=== PATIENT | female | born 1990 | race Caucasian/White ===

== ENCOUNTER 2022-07-21 13:43 | Inpatient (IN) ==
[2022-07-21] MEDS ORDERED: ONDANSETRON INJ 2 MG/ML 2 ML VIAL IV STA ×2 (14:28→18:15)
[2022-07-21] MEDS ORDERED: fentaNYL citrate PF 100 MCG/2 ML VIAL IV STA (14:28)
[2022-07-21] MEDS ORDERED: SODIUM CHLORIDE 0.9% 1000ML 1,000 ML IV STA (14:28)
--- NOTE | 2022-07-21 14:30 | Emergency Department Note ---
Impression & Plan Acute right flank pain, Hydroureteronephrosis, Obstruction of ureter ED Provider Note HISTORY OF PRESENT ILLNESS: Patient is a 31-year-old female presenting with right flank pain. Patient had a shockwave lithotripsy performed yesterday by urology. She reports that she went home last night had some vague right CVA and flank pain and 1 episode of vomiting. However, she states that she had excruciating pain upon waking up this morning in her right flank and has vomited multiple times. She reports that anytime she tries to take anything by mouth she immediately vomits. Denies noticing any fevers. Denies any anterior abdominal pain. Denies any chest pain or shortness of breath. ROS: as above PHYSICAL EXAM: Constitutional: Patient appears in no acute distress. HENT: Head: Normocephalic and atraumatic. Eyes: EOMI, PERRL Mouth/Throat: Mucous membranes moist. Neck: Trachea midline. Neck supple. Cardiovascular: RRR, No murmurs, rubs or gallops. Intact distal pulses. Pulmonary/Chest: No respiratory distress. Breath sounds clear and equal bilaterally. No wheezes or rales. Abdominal: BS +. Abdomen soft, no tenderness, rebound or guarding. Back: No midline spinal tenderness, no paraspinal tenderness. Right CVA tenderness Musculoskeletal: No edema, tenderness or deformity noted. Skin: Warm and dry. No rash, erythema, pallor or cyanosis Psychiatric: Appropriate mood and affect for situation. Neurological: Alert and keenly responsive. CN II-XII grossly intact, moving all extremities equally and fully. MDM: - Vitals signs stable. - History obtained via patient. Patient presents with right flank pain. Patient reports that yesterday she had shockwave lithotripsy. She states that last night she had some vague right CVA pain and 1 episode of vomiting. She reports that since waking up this morning her pain has been excruciating and she has been unable to tolerate anything by mouth. She reports that she has been vomiting nonstop since waking up. Denies any fevers. Denies any anterior abdominal pain. Denies any chest pain or shortness of breath - Chronic conditions affecting care: Recurrent ureteral stones - Differential diagnoses include, but are not limited to: Ureteric calculi; pyelonephrosis; muscle spasm; ruptured ureter - Order placed for continuous cardiac monitoring. At this time, monitor showed rate of 81 bpm with normal sinus rhythm, per my interpretation. - External medical records reviewed. Patient had shockwave lithotripsy performed for a right-sided UPJ stone. - Laboratory workup interpreted by myself showed leukocytosis (WBC 14.52); stable electrolytes; normal creatinine; normal lipase - UA shows ketones and blood, but no bacteria. - CT abdomen/pelvis wo contrast showed proximal right ureter conglomerate from her stone fragments extending for a length of 9 mm causing moderate hydroureteronephrosis with perinephric and periureteral inflammation. - Discussed case with urologist labor relations director, Dr. Cam. He plans to take the patient to the OR for a stent. - Patient was given 1L NS, 50 mcg IV fentanyl and 4 mg IV zofran in ER. On reassessment, patient appears much more comfortable. - Discussed results with patient. Discussed plan for OR - Patient to go to OR with urology for further management. ASSESSMENT AND PLAN: Diagnosis: right flank pain; nausea and vomiting; right hydroureteronephrosis; obstructing right stone Plan: to OR Past Med/Surg History Medical History History of asthma exercise induced since a teenager History of COVID-19 07/31/21, home test and test at [facility], not hosp; fever, body aches, chills>resolved History of kidney stones started when she was 16 years old Hx of migraines Slow to wake up after anesthesia Surgical History Hx of lithotripsy x2 Hx of wisdom tooth extraction Social History Smoking Status: Never smoker Second Hand Exposure: No; Hx Alcohol Use: No Hx Substance Use: No Preferred Language: Somali Communication Ability: Effective Metal Lather Required: No Beliefs That Will Affect Care: None Current Living Situation: Family Feels Safe at Home: Yes Assistive Devices: None Allergies Allergies Allergy/AdvReac Type Severity Reaction Status Date / Time amoxicillin Allergy Unknown GI SYMPTOMS Verified 07/21/22 15:27 nitrofurantoin Allergy Unknown GI SYMPTOMS Verified 07/21/22 15:27 Home Meds Home Medications Medication Instructions Recorded Confirmed Migraine Medication 1 tab PO UD PRN MIGRAINES 07/10/22 07/21/22 albuterol sulfate 90 mcg/actuation 2 puff inhalation Q4 PRN 07/10/22 07/21/22 aerosol inhaler wheezing/dyspnea norgestimate 0.18 mg/0.215 mg/0.25 1 tab PO QPM 07/10/22 07/21/22 mg-ethinyl estradiol 25 mcg tablet (Syh-Gh-Vmapxf) ondansetron 4 mg disintegrating 4 mg PO Q8H PRN NAUSEA W/MIGRAINES 07/10/22 07/21/22 tablet Previous Rx's Medication Instructions Recorded oxycodone 5 mg tablet 5 mg PO Q6H PRN pain #7 tabs 07/21/22 Results & Data (ED) Vital Signs Vital Signs - 24 hr 07/21/22 14:03 Temperature 36.4 C L Temperature Source Temporal Artery Scan Pulse Rate 80 Respiratory Rate 18 Blood Pressure 117/73 Blood Pressure Mean 87 Pulse Oximetry 99 Sepsis Recent Fever Within 48 Hours No Sepsis New/Unexplained Change in Mental Status N/A Sepsis Action Taken by Nursing No Action Required Laboratory Data 07/21/22 14:46 07/21/22 14:46 Lab Results 07/21/22 07/21/22 07/21/22 Range/Units 14:46 14:46 14:46 WBC 14.52 H (4.8-10.8) K/ul RBC 4.86 (4.20-5.40) M/uL Hgb 14.6 (12.0-16.0) g/dl Hct 43.3 (37.0-47.0) % MCV 89.1 (80.0-100.0) fL MCH 30.0 (25.0-34.0) pg MCHC 33.7 (32.0-36.0) g/dL RDW Std Deviation 40.4 (36.4-46.3) fL RDW Coeff of [place]imbola 12.3 (11.5-14.5) % Plt Count 243 (130-400) K/uL MPV 10.1 (9.4-12.4) fL Immature Gran % (Auto) 0.3 % Neut % (Auto) 87.9 % Lymph % (Auto) 7.4 % [place] % (Auto) 4.0 % Eos % (Auto) 0.1 % Baso % (Auto) 0.3 % Neut # (Auto) 12.78 H (1.40-6.50) K/uL Lymph # (Auto) 1.07 L (1.2-3.4) K/uL [place] # (Auto) 0.58 (0.11-0.59) K/uL Eos # (Auto) 0.01 (0-0.50) K/uL Baso # (Auto) 0.04 (0-0.2) K/uL Immature Gran # (Auto) 0.04 (0.01-0.20) K/uL Sodium 136 (136-145) mmol/L Potassium 3.5 (3.5-5.1) mmol/L Chloride 105 (98-107) mmol/L Carbon Dioxide 27 (21-32) mmol/L Anion Gap 4 (3-11) BUN 12 (6-23) mg/dl Creatinine 0.85 (0.6-1.2) mg/dl Est Cr Clr Drug Dosing 64.2 ml/min Est GFR ( Amer) 104.3 ml/min Est GFR (Non-Af Amer) 90.0 ml/min BUN/Creatinine Ratio 14.1 (10-20) Glucose 117 H (70-99(Fasting)) mg/dl Lactate 1.2 (0.4-2.0) mmol/L Calcium 9.2 (8.6-10.3) mg/dl Total Bilirubin 2.0 H (0.2-1.0) mg/dl AST 17 (13-39) U/L ALT 10 (7-52) U/L Alkaline Phosphatase 48 (34-104) U/L Total Protein 7.0 (6.0-8.3) gm/dl Albumin 4.2 (3.4-5.0) gm/dl Globulin 2.8 (2.5-4.0) gm/dl Albumin/Globulin Ratio 1.5 (0.9-2) Lipase 15 (11-82) U/L Urine Color Urine Appearance (Clear) Urine pH (4.5-7.5) Ur Specific [place] (1.000-1.030) Urine Protein (Negative) Urine Glucose (UA) (Negative) Urine Ketones (Negative) Urine Blood (Negative) Urine Nitrite (Negative) Urine Bilirubin (Negative) Urine Urobilinogen (Negative) Ur Leukocyte Esterase (Negative) Urine WBC (Auto) (0-5) /hpf Urine RBC (Auto) (0-4) /hpf U Hyaline Cast (Auto) (0-5) /lpf U Epithel Cells (Auto) (0-5) /lpf Urine Bacteria (Auto) (Negative) Ur Renal Epithelial Cell Urine Crystals Urine Test (Negative) 07/21/22 07/21/22 Range/Units 14:46 14:46 WBC (4.8-10.8) K/ul RBC (4.20-5.40) M/uL Hgb (12.0-16.0) g/dl Hct (37.0-47.0) % MCV (80.0-100.0) fL MCH (25.0-34.0) pg MCHC (32.0-36.0) g/dL RDW Std Deviation (36.4-46.3) fL RDW Coeff of Abimbola (11.5-14.5) % Plt Count (130-400) K/uL MPV (9.4-12.4) fL Immature Gran % (Auto) % Neut % (Auto) % Lymph % (Auto) % [place] % (Auto) % Eos % (Auto) % Baso % (Auto) % Neut # (Auto) (1.40-6.50) K/uL Lymph # (Auto) (1.2-3.4) K/uL [place] # (Auto) (0.11-0.59) K/uL Eos # (Auto) (0-0.50) K/uL Baso # (Auto) (0-0.2) K/uL Immature Gran # (Auto) (0.01-0.20) K/uL Sodium (136-145) mmol/L Potassium (3.5-5.1) mmol/L Chloride (98-107) mmol/L Carbon Dioxide (21-32) mmol/L Anion Gap (3-11) BUN (6-23) mg/dl Creatinine (0.6-1.2) mg/dl Est Cr Clr Drug Dosing ml/min Est GFR ( Amer) ml/min Est GFR (Non-Af Amer) ml/min BUN/Creatinine Ratio (10-20) Glucose (70-99(Fasting)) mg/dl Lactate (0.4-2.0) mmol/L Calcium (8.6-10.3) mg/dl Total Bilirubin (0.2-1.0) mg/dl AST (13-39) U/L ALT (7-52) U/L Alkaline Phosphatase (34-104) U/L Total Protein (6.0-8.3) gm/dl Albumin (3.4-5.0) gm/dl Globulin (2.5-4.0) gm/dl Albumin/Globulin Ratio (0.9-2) Lipase (11-82) U/L Urine Color [place] Urine Appearance Turbid A (Clear) Urine pH 8.0 H (4.5-7.5) Ur Specific [place] 1.025 (1.000-1.030) Urine Protein 2+ H (Negative) Urine Glucose (UA) Negative (Negative) Urine Ketones 2+ H (Negative) Urine Blood 3+ H (Negative) Urine Nitrite Negative (Negative) Urine Bilirubin 1+ H (Negative) Urine Urobilinogen Negative (Negative) Ur Leukocyte Esterase 1+ H (Negative) Urine WBC (Auto) 10-30 H (0-5) /hpf Urine RBC (Auto) >30 H (0-4) /hpf U Hyaline Cast (Auto) 0 (0-5) /lpf U Epithel Cells (Auto) 5-10 H (0-5) /lpf Urine Bacteria (Auto) Negative (Negative) Ur Renal Epithelial Cell Not Reportable Urine Crystals Not Reportable Urine Test Negative (Negative) Administered Medications Discontinued Medications Fentanyl Citrate (Fentanyl Citrate Pf 100 Mcg/2 Ml Vial) 50 mcg IV NOW STA Stop: 07/21/22 14:29 Last Admin: 07/21/22 14:44 Dose: 50 mcg Documented By: JING Sodium Chloride (Nss 1000ml) 1,000 mls @ 999 mls/hr IV .Q1H1M STA Stop: 07/21/22 15:28 Last Admin: 07/21/22 14:44 Dose: 999 mls/hr Documented By: JING Ondansetron HCl (Ondansetron Inj 2 Mg/Ml 2 Ml Vial) 4 mg IV NOW STA Stop: 07/21/22 14:29 Last Admin: 07/21/22 14:44 Dose: 4 mg Documented By: JING Imaging Data Radiologist's Impression: Abdomen/Pelvis CT 07/21/22 14:[address] WITHOUT CONTRAST CT DOSE: 254.05 mGy.cm HISTORY: Acute right-sided flank pain with recent lithotripsy right flank pain s/p lithotripsy TECHNIQUE: Multiaxial CT images of the abdomen and pelvis were performed without contrast. A dose lowering technique was utilized adhering to the principles of ALARA. COMPARISON STUDY: CT abdomen and pelvis 07/03/2022 FINDINGS: Clear lung bases. No pneumatosis or pneumoperitoneum. The unenhanced spleen, pancreas and adrenal glands are unremarkable. Gallbladder and liver are within normal limits. 4 mm nonobstructing calculus of the interpolar left kidney. There are approximately 7 nonobstructing calculi right kidney measuring up to 4 mm. There is a column of small stone fragments in the proximal right ureter conglomerate measuring up to 9 mm, the largest calculus measuring up to 4 mm. Moderate right-sided hydroureteronephrosis with perinephric and periureteral stranding. Decompressed urinary bladder. Unremarkable uterus. No abdominal aortic aneurysm. No bowel obstruction or bowel wall thickening. Normal appendix. Unremarkable soft tissues. No acute fracture. IMPRESSION: 1. Three small stone fragments within the proximal right ureter measuring up to 4 mm individually and conglomerate extending for a length of 9 mm results in moderate hydroureteronephrosis with perinephric and periureteral inflammation. 2. Bilateral nephrolithiasis. ACT 112: Negative or not required by law. The above report was generated using voice recognition software. It may contain grammatical, syntax or spelling errors. Electronically signed by: Richmond Campos M.D. 07/21/2022 3:27 PM Discharge Plan Visit Data Chief Complaint: Flank Pain Stated Complaint: VOMITING, S/P STONE KIDNEY STONE ED Provider: Elizabeth Tavera Discharge Problem: Acute right flank pain, Hydroureteronephrosis, Obstruction of ureter Forms Stand Alone Forms: [employer] Prescriptions Prescriptions: No Action oxycodone 5 mg tablet 5 mg PO Q6H PRN (Reason: pain) Qty: 7 0RF albuterol sulfate 90 mcg/actuation HFA aerosol inhaler 2 puff INHALATION Q4 PRN (Reason: wheezing/dyspnea) ondansetron 4 mg Tablet,Disintegrating 4 mg PO Q8H PRN (Reason: NAUSEA W/MIGRAINES) norgestimate-ethinyl estradiol [Uyn-Po-Fgaxmc] 0.18/0.215/0.25 mg-25 mcg tablet 1 tab PO QPM Migraine Medication 1 tab PO UD PRN (Reason: MIGRAINES) Referrals Referrals: Jarad Gonzalez MD [Primary Care Provider] -
[2022-07-21 15:13] LABS: Basophils # (auto) 0.04 K/uL (0-0.2); Basophils % (auto) 0.3 %; Eosinophils # (auto) 0.01 K/uL (0-0.50); Eosinophils % (auto) 0.1 %; Hematocrit (blood only) 43.3 % (37.0-47.0); Hemoglobin 14.6 g/dl (12.0-16.0); Immature Granulocytes # (auto) 0.04 K/uL (0.01-0.20); Immature Granulocytes % (auto) 0.3 %; Lymphocytes # (auto) 1.07 K/uL (1.2-3.4); Lymphocytes % (auto) 7.4 %; Mean Corpuscular Hgb Conc 33.7 g/dL (32.0-36.0); Mean Corpuscular Volume 89.1 fL (80.0-100.0); Mean Platelet Volume 10.1 fL (9.4-12.4); Monocytes # (auto) 0.58 K/uL (0.11-0.59); Neutrophils # (auto) 12.78 K/uL (1.40-6.50); Neutrophils % (auto) 87.9 %; Platelet Count 243 K/uL (130-400); RDW Coefficient of Variation 12.3 % (11.5-14.5); RDW Standard Deviation 40.4 fL (36.4-46.3); Red Blood Count 4.86 M/uL (4.20-5.40); White Blood Count 14.52 K/ul (4.8-10.8)
[2022-07-21 15:22] LABS: Pregnancy Test, Urine Negative (Negative)
[2022-07-21 15:25] LABS: Appearance Urine Turbid (Clear); Bacteria Urine Automated Negative (Negative); Blood Urine 3+ (Negative); Color Urine Orange; Glucose Urine UA Negative (Negative); Ketones Urine 2+ (Negative); Leukocyte Esterase Urine 1+ (Negative); Nitrite Urine Negative (Negative); RBC Urine Automated >30 /hpf (0-4); Specific Gravity Urine 1.025 (1.000-1.030); Urobilinogen Urine Negative (Negative)
[2022-07-21 15:28] LABS: Bilirubin Urine 1+ (Negative); Protein Urine 2+ (Negative)
--- NOTE | 2022-07-21 15:29 | CT Scan Report ---
ABDOMEN AND PELVIS CT WITHOUT CONTRAST CT DOSE: 254.05 mGy.cm HISTORY: Acute right-sided flank pain with recent lithotripsy right flank pain s/p lithotripsy TECHNIQUE: Multiaxial CT images of the abdomen and pelvis were performed without contrast. A dose lo wering technique was utilized adhering to the principles of ALARA. COMPARISON STUDY: CT abdomen and pelvis 07/03/2022 FINDINGS: Clear lung bases. No pneumatosis or pneumoperitoneum. The unenhanced spleen, pancreas and a drenal glands are unremarkable. Gallbladder and liver are within normal limits. 4 mm nonobstructing c alculus of the interpolar left kidney. There are approximately 7 nonobstructing calculi right kidney measuring up to 4 mm. There is a column of small stone fragments in the proximal right ureter conglom erate measuring up to 9 mm, the largest calculus measuring up to 4 mm. Moderate right-sided hydrouret eronephrosis with perinephric and periureteral stranding. Decompressed urinary bladder. Unremarkable uterus. No abdominal aortic aneurysm. No bowel obstruction or bowel wall thickening. Normal appendix. Unremarkable soft tissues. No acute f racture. IMPRESSION: 1. Three small stone fragments within the proximal right ureter measuring up to 4 mm individually and conglomerate extending for a length of 9 mm results in moderate hydroureteronephrosis with perinephr ic and periureteral inflammation. 2. Bilateral nephrolithiasis. ACT 112: Negative or not required by law. The above report was generated using voice recognition software. It may contain grammatical, syntax o r spelling errors. Electronically signed by: Richmond Campos M.D. 07/21/2022 3:27 PM
[2022-07-21 15:30] LABS: Albumin Globulin Ratio 1.5 (0.9-2); Albumin Level 4.2 gm/dl (3.4-5.0); BUN Creatinine Ratio 14.1 (10-20); Calcium 9.2 mg/dl (8.6-10.3); Creatinine Clr Calc Pharmacy 64.2 ml/min; Est GFR (African American) 104.3 ml/min; Globulin 2.8 gm/dl (2.5-4.0); Potassium 3.5 mmol/L (3.5-5.1)
[2022-07-21 15:49] LABS: Cast Urine Automated 0 /lpf (0-5)
--- NOTE | 2022-07-21 16:03 | Urology Consultation ---
Date of Consultation July 21, 2022 Assessment & Plan (1) Ureter, calculus: Plan 31 yo F s/p right ESWL yesterday now with several obstructing right proximal ureteral calculi and intractable pain. -Plan for cystoscopy, right retrograde, right ureteral stent placement -Risks and benefits discussed, consent obtained. Patient marked on the right side. -Cipro IV due to penicillin allergy and patient could not take a bactrim tablet due to size History of Present Illness Reason for Consultation: Right obstructing ureteral calculi History of Present Illness 31 yo F who is s/p right ESWL yesterday. She called into the quality assurance monitor chassis line with severe pain and nausea. She was directed to the ED. She was afebrile with stable vitas. WBC was 14, Cr 0.85, UA consistent with recent ESWL but not overall concerning for infection. CT scan was performed which showed several right proximal obstructing ureteral fragments. Patient NPO since yesterday. Allergies Allergy/AdvReac Type Severity Reaction Status Date / Time amoxicillin Allergy Unknown GI SYMPTOMS Verified 07/21/22 15:27 nitrofurantoin Allergy Unknown GI SYMPTOMS Verified 07/21/22 15:27 Home Medications Medication Instructions Recorded Confirmed Type Migraine Medication 1 tab PO UD PRN MIGRAINES 07/10/22 07/21/22 History albuterol sulfate 90 mcg/actuation 2 puff inhalation Q4 PRN 07/10/22 07/21/22 History aerosol inhaler wheezing/dyspnea norgestimate 0.18 mg/0.215 mg/0.25 1 tab PO QPM 07/10/22 07/21/22 History mg-ethinyl estradiol 25 mcg tablet (Pns-Nz-Krhktt) ondansetron 4 mg disintegrating 4 mg PO Q8H PRN NAUSEA W/MIGRAINES 07/10/22 07/21/22 History tablet oxycodone 5 mg tablet 5 mg PO Q6H PRN pain #7 tabs 07/21/22 07/21/22 Rx Patient History Medical History History of asthma exercise induced since a teenager History of COVID-19 07/31/21, home test and test at [facility], not hosp; fever, body aches, ch ills>resolved History of kidney stones started when she was 16 years old Hx of migraines Slow to wake up after anesthesia Surgical History Hx of lithotripsy x2 Hx of wisdom tooth extraction Social History Smoking Status: Never smoker Second Hand Exposure: No; Hx Alcohol Use: No Hx Substance Use: No Preferred Language: Italian Communication Ability: Effective Moulder Operator Required: No Beliefs That Will Affect Care: None Current Living Situation: Family Feels Safe at Home: Yes Assistive Devices: None Review of Systems Review of Systems: 14 point review of systems negative outside of what is listed above in HPI Physical Exam Physical Exam: General: Alert and oriented, no acute distress HEENT: Normocephalic, mucous membranes moist Pulmonary: Nonlabored respirations Abdomen: Nondistended Extremities: Moves all 4 spontaneously Neuro: No gross deficits Skin: Warm, dry, no rashes noted Results & Data Vital Signs (Past 12 Hours) Vital Signs Temp Pulse Resp BP Pulse Ox 07/21/22 14:03 36.4 C L 80 18 117/73 99 PG Care Time/CCT Total # of Minutes Spent Total Time Spent with Patient: Total time spent is greater than 50% in coordination of care (as documented) at patient's floor/unit and/or counseling patient: Coding Level of Care Code 27795 IN/OBS CONSULT LVL 3,45M Diagnoses Ureter, calculus N20.1
[2022-07-21] MEDS: SULFAMETHOXAZOLE/TRIMETHOPRIM DS 800/160MG TAB PO ONE ×2 (16:26→16:46)
--- NOTE | 2022-07-21 18:24 | Anesthesiology Consultation ---
Date of Service July 21, 2022 Assessment & Plan (1) Encounter for pre-operative examination: Chart Review Chart Review: Acceptable Risk for Surgery History Surgery Operation Date: 07/21/22 17:30 Proposed Procedures p Cystoscopy Retrograde(Right) - Jerry Cam MD Height/Weight Height: 4 ft 11 in Weight: 49.3 kg Allergies Allergy/AdvReac Type Severity Reaction Status Date / Time amoxicillin Allergy Unknown GI SYMPTOMS Verified 07/21/22 15:27 nitrofurantoin Allergy Unknown GI SYMPTOMS Verified 07/21/22 15:27 Medications Home Medications Medication Instructions Recorded Confirmed Last Taken Migraine Medication 1 tab PO UD PRN MIGRAINES 07/10/22 07/21/22 Unknown albuterol sulfate 90 mcg/actuation 2 puff inhalation Q4 PRN 07/10/22 07/21/22 Unknown aerosol inhaler wheezing/dyspnea norgestimate 0.18 mg/0.215 mg/0.25 1 tab PO QPM 07/10/22 07/21/22 07/19/22 mg-ethinyl estradiol 25 mcg tablet (Pcd-Px-Uslodk) ondansetron 4 mg disintegrating 4 mg PO Q8H PRN NAUSEA W/MIGRAINES 07/10/22 07/21/22 Unknown tablet oxycodone 5 mg tablet 5 mg PO Q6H PRN pain #7 tabs 07/21/22 07/21/22 Unknown Past Medical History Medical History History of asthma exercise induced since a teenager History of COVID-19 07/31/21, [facility], [facility] hosp; fever, body aches, chills>resolved History of kidney stones started when she was 16 years old Hx of migraines Slow to wake up after anesthesia Past Surgical History Surgical History Hx of lithotripsy x2 Hx of wisdom tooth extraction Social History Smoking Status: Never smoker Hx Alcohol Use: No Hx Substance Use: No substance use type: does not use Physical Exam Vital Signs Last Vital Signs Temp 36.4 C L 07/21/22 14:03 Pulse 78 07/21/22 16:28 Resp 18 07/21/22 16:28 BP 110/61 07/21/22 16:30 Pulse Ox 100 07/21/22 16:28 O2 Del Method Room Air 07/21/22 16:28 Testing Laboratory Results 07/21/22 14:46 07/21/22 14:46 Urine Color [place] 07/21/22 14:46 Urine Appearance Turbid (Clear) A 07/21/22 14:46 Urine pH 8.0 (4.5-7.5) H 07/21/22 14:46 Ur Specific [place] 1.025 (1.000-1.030) 07/21/22 14:46 Urine Protein 2+ (Negative) H 07/21/22 14:46 Urine Glucose (UA) Negative (Negative) 07/21/22 14:46 Urine Ketones 2+ (Negative) H 07/21/22 14:46 Urine Nitrite Negative (Negative) 07/21/22 14:46 Ur Leukocyte Esterase 1+ (Negative) H 07/21/22 14:46 Urine WBC (Auto) 10-30 /hpf (0-5) H 07/21/22 14:46 Urine RBC (Auto) >30 /hpf (0-4) H 07/21/22 14:46 U Hyaline Cast (Auto) 0 /lpf (0-5) 07/21/22 14:46 U Epithel Cells (Auto) 5-10 /lpf (0-5) H 07/21/22 14:46 Urine Bacteria (Auto) Negative (Negative) 07/21/22 14:46 Urine Test Negative (Negative) 07/21/22 14:46 07/21/22 14:46 Urine Test Negative
[2022-07-21] MEDS ORDERED: fentaNYL citrate PF 100 MCG/2 ML VIAL ONE ×2 (18:54→21:01)
[2022-07-21] MEDS ORDERED: MIDAZOLAM HCL 1 MG/ML 2ML VIAL ONE (18:54)
[2022-07-21] MEDS ORDERED: CIPROFLOXACIN / D5W 400 MG/200 ML BAG IV ONE (20:15)
[2022-07-21] MEDS ORDERED: PROMETHAZINE HCL 6.25 MG in SODIUM CHLORIDE 0.9% 50 ML IV PRN (20:32)
[2022-07-21] MEDS ORDERED: fentaNYL citrate PF 100 MCG/2 ML VIAL IV PRN (20:32)
[2022-07-21] MEDS ORDERED: ATROPINE SULFATE 0.1 MG/ML 10ML SYR IV PRN (20:32)
[2022-07-21] MEDS ORDERED: PROPOFOL IV EMULSION 10 MG/ML 20 ML VIAL IV ONE (20:50)
[2022-07-21] MEDS ORDERED: ceFAZolin 330 MG/ML 1 GM VIAL ONE (20:50)
[2022-07-21] MEDS ORDERED: LIDOCAINE 2% MPF LOCAL 5 ML VIAL ONE (20:50)
--- NOTE | 2022-07-21 20:52 | Post Operative Brief Note ---
PG Immediate Post Op with CF Date of Surgery July 21, 2022 Pre & Post Diagnosis Operation Date: 07/21/22 17:30 Pre-Op Diagnosis: VOMITING, S/P STONE KIDNEY STONE Post-Op Diagnosis: VOMITING, S/P STONE KIDNEY STONE I identified the patient and participated in the time-out.: Yes Procedure Operation Date: 07/21/22 17:30 Actual Procedures p Cystoscopy Retrograde Right Stent Placement(Right) - Jerry Cam MD Surgeon Jerry Cam MD Chair Pad Maker None Estimated Blood Loss 0 Findings See Below Retrograde showed obstruction at the level of the proximal ureter corresponding with stones on CT scan. Stent in appropriate position. Drains Other (6 Serbian by 26 cm right ureteral stent) Anesthesia Type MAC Complications none
--- NOTE | 2022-07-21 20:52 | Operative Report ---
PG Post Operative Report Pre & Post Diagnosis Operation Date: 07/21/22 17:30 Pre-Op Diagnosis: VOMITING, S/P STONE KIDNEY STONE Post-Op Diagnosis: VOMITING, S/P STONE KIDNEY STONE I identified the patient and participated in the time-out.: Yes Procedure Operation Date: 07/21/22 17:30 Actual Procedures p Cystoscopy, right retrograde pyelogram with radiographic interpretation, right Stent Placement(Right) - Jerry aCm MD Surgeon Jerry Cam MD Port Engineer None Estimated Blood Loss 0 Findings See Below Filling defect in right proximal ureter where stones were seen on CT scan. Stent in appropriate position. Specimens None Drains 6 British by 26 cm right ureteral stent Anesthesia Type MAC Complications none Indications 31-year-old female with a history of right proximal ureteral calculus who status post right ESWL on 07/20/2022. She developed intractable pain and nausea presented the emergency department where CT scan showed numerous obstructing right proximal ureteral calculi. Risk and benefits discussed and due to pain control and potential you urinary tract infection, recommended right ureteral stent placement. Description of Procedure After informed consent was obtained, the patient was transported operative suite. MAC anesthesia was induced. The patient was placed in dorsolithotomy position prepped and draped in a sterile fashion. They received preoperative Ancef for antibiotic prophylaxis. She had a previous Augmentin allergy as a baby but was not sure what the reaction was. An appropriate surgical timeout was performed. A 22 British rigid scope was inserted per urethra into the bladder. Haskins cystoscopy revealed no stones or lesions. I turned my attention the right ureteral orifice and intubated this with a 5 British open-ended catheter. A right retrograde pyelogram was shot which showed a filling defect in the right proximal ureter. A sensor wire was advanced into the kidney and confirmed fluoroscopically. A 6 British by 26 cm right ureteral stent was deployed with a good proximal coil in the renal pelvis and a good distal coil noted in the bladder, confirmed fluoroscopically and under direct visualization, respectively. The bladder was emptied and the scope was removed. This concluded the end of the case. All counts were correct at the end of the case. I was present, scrubbed, and actively participated for the entirety of the procedure. I attest to the content of the Intraoperative Record and any orders documented therein. Any exceptions are noted below.
[2022-07-21] MEDS ORDERED: oxyBUTYnin chloride 5 MG TAB PO PRN (21:04)
[2022-07-21] MEDS ORDERED: KETOROLAC TROMETHAMINE 15 MG/ML VIAL IV PRN ×2 (21:04→21:34)
--- NOTE | 2022-07-21 21:06 | Anesthesiology Progress Note ---
Date of Service July 21, 2022 Anesthesia Post Procedure Vital Signs Vital Signs: Temp Pulse Pulse Resp BP BP Pulse Ox 07/21/22 20:19 07/21/22 19:15 80 18 120/68 98 07/21/22 19:00 98 07/21/22 18:27 75 16 115/64 98 07/21/22 16:30 110/61 07/21/22 16:28 78 18 99/54 L 100 07/21/22 14:03 36.4 C L 80 18 117/73 99 O2 Del Method 07/21/22 20:19 Room Air 07/21/22 19:15 Room Air 07/21/22 19:00 Room Air 07/21/22 18:27 Room Air 07/21/22 16:30 07/21/22 16:28 Room Air 07/21/22 14:03 Pain Intensity Right Flank: Pain Intensity: 7 Transfer of Care Handoff Completed per policy Notes Mental Status: alert / awake / arousable Patient Amnestic to Procedure: Yes Nausea / Vomiting: adequately controlled Pain: adequately controlled Airway Patency, RR, SpO2: stable & adequate BP & HR: stable & adequate Hydration State: stable & adequate Anesthetic Complications: no major complications apparent
[2022-07-21] MEDS ORDERED: ondansetron HCL 8 MG in DEXTROSE 5% 50 ML IV PRN (21:34)
[2022-07-21] MEDS ORDERED: ALBUTEROL HFA 8 GM INHALER INH PRN (21:34)
[2022-07-21] MEDS ORDERED: CEFEPIME 2,000 MG in SYRINGE 0 ML IV STA (21:34)
[2022-07-21] MEDS ORDERED: HYDROmorphone INJ 2 MG/ML SYR/VIAL IV PRN (21:34)
--- NOTE | 2022-07-21 22:36 | History & Physical Report ---
Date of Service July 21, 2022 Assessment & Plan (1) Acute right flank pain: (2) Hydroureteronephrosis: (3) Obstruction of ureter: (4) Kidney stone: Plan 31yo female admitted with obstructive nephrolithiasis, awaiting urological procedure. urology consult- pt due for surgery. Surgery postponed due to emergency. NPO IV Cefepime pain and nausea control Diet: NPO until surgery Code Status: Full Code Dispo: Med surg DVT prophylaxis: SCDs/per urology team post-op History of Present Illness Chief Complaint: R flank pain Primary Care Provider: Jarad Gonzalez MD Pt states that she had lithotripsy done yesterday but had persistent right flank pain with N/V. States that she was unable to keep food down since then. States that the flank pain persisted in spite of prescribed pain medications and presented for further evaluation. States she is due to have surgery with stent placement to help. She was in tears and visibly frustrated that her surgery had been postponed due to an emergency. States she was not able to take the oral Bactrim ordered ED course: CT abd/pelvis showed 3 obstructed stones in the right ureter with moderate hydrouretonephrosis, perinephric and periureteral inflammation. UA suggestive of infection, urine cx pending WBC elevated >[id number] Allergies Allergy/AdvReac Type Severity Reaction Status Date / Time amoxicillin Allergy Unknown GI SYMPTOMS Verified 07/21/22 15:27 nitrofurantoin Allergy Unknown GI SYMPTOMS Verified 07/21/22 15:27 Home Medications Medication Instructions Recorded Confirmed Type Migraine Medication 1 tab PO UD PRN MIGRAINES 07/10/22 07/21/22 History albuterol sulfate 90 mcg/actuation 2 puff inhalation Q4 PRN 07/10/22 07/21/22 History aerosol inhaler wheezing/dyspnea norgestimate 0.18 mg/0.215 mg/0.25 1 tab PO QPM 07/10/22 07/21/22 History mg-ethinyl estradiol 25 mcg tablet ([id number]-[id number]) ondansetron 4 mg disintegrating 4 mg PO Q8H PRN NAUSEA W/MIGRAINES 07/10/22 07/21/22 History tablet oxycodone 5 mg tablet 5 mg PO Q6H PRN pain #7 tabs 07/21/22 07/21/22 Rx Past Med/Surg History Medical History History of asthma exercise induced since a teenager History of COVID-19 07/31/21, home test and test at [facility], not hosp; fever, body aches, chills>resolved History of kidney stones started when she was 16 years old Hx of migraines Slow to wake up after anesthesia Surgical History Hx of lithotripsy x2 Hx of wisdom tooth extraction Social History Smoking Status: Never smoker Second Hand Exposure: No; Do You Dip or Chew Tobacco: No; Hx Alcohol Use: No Hx Substance Use: No Preferred Language: Citizen Of [place] Communication Ability: Effective Spa Experience Coordinator Required: No Beliefs That Will Affect Care: None Current Living Situation: Family Feels Safe at Home: Yes Safety Concerns: Feels Safe At This Time Assistive Devices: None Review of Systems Review of Systems: All systems reviewed & are unremarkable except as noted in Subjective Physical Exam Physical Exam: General: Alert, oriented. Tearful in the room Skin: No noted rashes or bruises Psych: Tearful, sad mood and affect Neuro: No gross deficits HEENT: NC/AT, CV: RRR, Normal s1, s2. No murmurs appreciated Resp: Breath sounds clear bilaterally, no increased effort of breathing. No crackles/rhonchi/rales. Abdomen: Soft, nontender, nondistended. Back: Right CVA tenderness present Extremities: No edema in lower extremities bilaterally. Results & Data Results & Data Vital Signs (Past 12 Hours) Vital Signs Temp Pulse Pulse Resp BP BP Pulse Ox 07/21/22 19:00 98 07/21/22 18:27 75 16 115/64 98 07/21/22 16:30 110/61 07/21/22 16:28 78 18 99/54 L 100 07/21/22 14:03 36.4 C L 80 18 117/73 99 O2 Del Method 07/21/22 19:00 Room Air 07/21/22 18:27 Room Air 07/21/22 16:30 07/21/22 16:28 Room Air 07/21/22 14:03 Diagnostic Findings Abdomen/Pelvis CT 07/21/22 14:[address] WITHOUT CONTRAST CT DOSE: 254.05 mGy.cm HISTORY: Acute right-sided flank pain with recent lithotripsy right flank pain s/p lithotripsy TECHNIQUE: Multiaxial CT images of the abdomen and pelvis were performed without contrast. A dose lowering technique was utilized adhering to the principles of ALARA. COMPARISON STUDY: CT abdomen and pelvis 07/03/2022 FINDINGS: Clear lung bases. No pneumatosis or pneumoperitoneum. The unenhanced spleen, pancreas and adrenal glands are unremarkable. Gallbladder and liver are within normal limits. 4 mm nonobstructing calculus of the interpolar left kidney. There are approximately 7 nonobstructing calculi right kidney measuring up to 4 mm. There is a column of small stone fragments in the proximal right ureter conglomerate measuring up to 9 mm, the largest calculus measuring up to 4 mm. Moderate right-sided hydroureteronephrosis with perinephric and periureteral stranding. Decompressed urinary bladder. Unremarkable uterus. No abdominal aortic aneurysm. No bowel obstruction or bowel wall thickening. Normal appendix. Unremarkable soft tissues. No acute fracture. IMPRESSION: 1. Three small stone fragments within the proximal right ureter measuring up to 4 mm individually and conglomerate extending for a length of 9 mm results in moderate hydroureteronephrosis with perinephric and periureteral inflammation. 2. Bilateral nephrolithiasis. ACT 112: Negative or not required by law. The above report was generated using voice recognition software. It may contain grammatical, syntax or spelling errors. Electronically signed by: Richmond Campos M.D. 07/21/2022 3:27 PM
--- NOTE | 2022-07-22 08:14 | Fluoroscopy Report ---
FL retrograde includes kub CLINICAL HISTORY: STENT PLACEMENTright-sided cystourethrogram with stent placement COMPARISON STUDY: CT abdomen and pelvis 07/21/2022 FLUOROSCOPY TIME: 11.6 seconds FLUOROSCOPY IMAGES: 5 EXPOSURE DOSE: 11.6 mGy Air KErma FINDINGS: Retrograde injection of contrast into the right ureter demonstrates persistent hydrouretero nephrosis. Subsequent images demonstrate placement of a right ureteral stent, proximal portion in sat isfactory positioning. The distal portion of the stent was not imaged. IMPRESSION: Fluoroscopic assistance as above. ACT 112: Negative or not required by law. Electronically signed by: Richmond Campos M.D. 07/22/2022 8:13 AM
--- NOTE | 2022-07-22 09:22 | Urology Progress Note ---
Date of Service July 22, 2022 Assessment & Plan (1) Obstruction of ureter: (2) Hydroureteronephrosis: (3) Ureter, calculus: Plan 31-year-old female who is status post right ESWL on 07/20/2022. She presented to hospital yesterday with intractable pain and vomiting. CT scan showed numerous obstructing right proximal ureteral calculi. She was taken to the OR for cystoscopy with right stent placement. Patient is tolerating the stent well Reasonable for her to be discharged home today Urology sent medications to her pharmacy for stent discomfort and several days of an antibiotic Message sent for patient to follow-up in clinic this week to discuss stone surgery Admission and Anticipated Discharge Date Admission Date: July 21, 2022 Subjective No acute issues overnight. Afebrile with stable vitals. Patient is tolerating the stent fairly well. She has noted some hematuria which is expected. Review of Systems Review of Systems: 14 point review of systems negative outside of what is listed above in HPI Physical Exam Physical Exam: General: Alert and oriented, no acute distress HEENT: Normocephalic, mucous membranes moist Pulmonary: Nonlabored respirations Abdomen: Nondistended Extremities: Moves all 4 spontaneously Neuro: No gross deficits Skin: Warm, dry, no rashes noted Results & Data Vital Signs (Past 12 Hours) Vital Signs Temp Pulse Pulse Resp BP BP Pulse Ox 07/22/22 07:50 36.8 C 86 18 94/59 L 97 07/22/22 00:56 36.8 C 75 16 99/64 L 97 07/21/22 23:38 36.9 C 71 16 94/59 L 97 07/21/22 22:30 36.9 C 58 L 16 100/57 L 98 07/21/22 22:07 36.8 C 67 16 106/65 98 07/21/22 21:30 37.1 C 67 16 92/60 L 100 O2 Del Method 07/22/22 07:50 Room Air 07/22/22 00:56 Room Air 07/21/22 23:38 Room Air 07/21/22 22:30 Room Air 07/21/22 22:07 Room Air 07/21/22 21:30 Room Air PG Care Time/CCT Total # of Minutes Spent Total Time Spent with Patient: Total time spent is greater than 50% in coordination of care (as documented) at patient's floor/unit and/or counseling patient: Coding Level of Care Code 52008 SUB INP/OBS CARE MIN Diagnoses Obstruction of ureter N13.5 Hydroureteronephrosis N13.30 Ureter, calculus N20.1
[2022-07-22] MEDS ORDERED: ACETAMINOPHEN 500 MG TAB PO PRN (11:45)
--- NOTE | 2022-07-22 12:22 | Hospitalist Progress Note ---
Date of Service July 22, 2022 Assessment & Plan (1) Acute right flank pain: Plan: History of kidney stone (2) Hydroureteronephrosis: (3) Obstruction of ureter: (4) Kidney stone: Plan 31yo female admitted with obstructive nephrolithiasis, awaiting urological procedure. Status post cystoscopy, retrograde right stent placement Minimal pain and dysuria Has been tolerating diet and ambulating without any difficulties She will be discharged home this afternoon as per urologist Code Status: Full Code Dispo: Med surg DVT prophylaxis: SCDs/per urology team post-op Admission and Anticipated Discharge Date Admission Date: July 21, 2022 Subjective 07/22/2022 The patient was seen and examined in medical floor She is a status post right ureteric stent placement Clinically much better with minimal pain at the right-sided abdomen and at the back No fever and or chills and no nausea and/or vomiting Review of Systems Review of Systems: All systems reviewed and are unremarkable except as noted below Physical Exam Physical Exam: Lying in bed comfortably Constitutional: + ill appearing and average body habitus Eyes: PERRL, conjunctivae normal, anicteric sclerae ENMT: external ear and nose normal, oropharynx normal Neck: trachea midline, no thyromegaly Respiratory: normal respiratory effort, lungs clear to auscultation Cardiovascular: Rate/Rhythm: regular rate and regular rhythm; not tachycardic Gastrointestinal (Abdomen): Inspection/Auscultation: normal bowel sounds; abdomen not distended Percussion/Palpation: abdomen soft; abdomen nontender Neurologic: normal touch/pain/proprioception, moves all extremities and + confused; no focal motor deficits Psychiatric: A+Ox3, euthymic affect Lymphatic: no cervical or axillary lymphadenopathy Results & Data Results & Data Vital Signs (Past 12 Hours) Vital Signs Temp Pulse Resp BP BP Pulse Ox O2 Del Method 07/22/22 07:50 36.8 C 86 18 94/59 L 97 Room Air 07/22/22 00:56 36.8 C 75 16 99/64 L 97 Room Air Laboratory Results [facility] 07/21/22 14:46 Sodium 136 Potassium 3.5 Chloride 105 Carbon Dioxide 27 BUN 12 Creatinine 0.85 Glucose 117 H Calcium 9.2 Liver Function 07/21/22 Range/Units 14:46 Total Bilirubin 2.0 H (0.2-1.0) mg/dl AST 17 (13-39) U/L ALT 10 (7-52) U/L Alkaline Phosphatase 48 (34-104) U/L Albumin 4.2 (3.4-5.0) gm/dl Urine 07/21/22 Range/Units 14:46 Urine Color [place] Urine Appearance Turbid A (Clear) Urine pH 8.0 H (4.5-7.5) Ur Specific [place] 1.025 (1.000-1.030) Urine Protein 2+ H (Negative) Urine Glucose (UA) Negative (Negative)
--- NOTE | 2022-07-23 14:00 | Discharge Summary ---
Date of Service July 22, 2022 Admission HPI Per Admitting Provider Pt states that she had lithotripsy done yesterday but had persistent right flank pain with N/V. States that she was unable to keep food down since then. States that the flank pain persisted in spite of prescribed pain medications and presented for further evaluation. States she is due to have surgery with stent placement to help. She was in tears and visibly frustrated that her surgery had been postponed due to an emergency. States she was not able to take the oral Bactrim ordered ED course: CT abd/pelvis showed 3 obstructed stones in the right ureter with moderate hydrouretonephrosis, perinephric and periureteral inflammation. UA suggestive of infection, urine cx pending WBC elevated >[id number] Admission Exam Per Admitting Provider Physical Exam: General: Alert, oriented. Tearful in the room Skin: No noted rashes or bruises Psych: Tearful, sad mood and affect Neuro: No gross deficits HEENT: NC/AT, CV: RRR, Normal s1, s2. No murmurs appreciated Resp: Breath sounds clear bilaterally, no increased effort of breathing. No crackles/rhonchi/rales. Abdomen: Soft, nontender, nondistended. Back: Right CVA tenderness present Extremities: No edema in lower extremities bilaterally. Principal Diagnosis Hydroureteronephrosis, obstructive stone in the left ureter Discharge Exam Lying in bed comfortably Constitutional + ill appearing and average body habitus Eyes PERRL, conjunctivae normal, anicteric sclerae ENMT external ear and nose normal, oropharynx normal Neck trachea midline, no thyromegaly Respiratory normal respiratory effort, lungs clear to auscultation Cardiovascular Rate/Rhythm: regular rate and regular rhythm; not tachycardic Gastrointestinal (Abdomen) Inspection/Auscultation: normal bowel sounds; abdomen not distended Percussion/Palpation: abdomen soft; abdomen nontender Neurologic normal touch/pain/proprioception, moves all extremities and + confused; no focal motor deficits Psychiatric A+Ox3, euthymic affect Lymphatic no cervical or axillary lymphadenopathy Discharge Data Allergies Allergy/AdvReac Type Severity Reaction Status Date / Time amoxicillin Allergy Unknown GI SYMPTOMS Verified 07/23/22 00:35 nitrofurantoin Allergy Unknown GI SYMPTOMS Verified 07/23/22 00:35 Consultations 07/21/22 16:57 ED Decision to Admit Stat 07/21/22 18:55 Consult Urology Routine Procedures Performed Operation Date: 07/21/22 17:30 Actual Procedures p Cystoscopy Retrograde Right Stent Placement(Right) - Jerry Cam MD Ordered Studies 07/21/22 [place] retrograde includes kub Routine 07/21/22 14:27 CT abd pelvis wo con Stat Hospital Course (1) Acute right flank pain: History of kidney stone (2) Hydroureteronephrosis: (3) Obstruction of ureter: (4) Kidney stone: Plan 31yo female admitted with obstructive nephrolithiasis, awaiting urological procedure. Status post cystoscopy, retrograde right stent placement Minimal pain and dysuria Has been tolerating diet and ambulating without any difficulties She will be discharged home this afternoon as per urologist Code Status: Full Code Dispo: Med surg DVT prophylaxis: SCDs/per urology team post-op Total Time Total Time Spent Total Time Spent (In Minutes): 35 minutes Discharge Plan Discharge Items Patient Disposition: Home - Self-Care Reason For Visit: OBSTRUCTING KIDNEY STONES Discharge Diagnosis: Hydroureteronephrosis, obstructive stone in the left ureter Condition on Discharge: Good Activity: Resume your previous activity Non-emergency contact: Primary Care Provider Call non-emergency contact if: you have any medication questions and your symptoms worsen Follow-up/Referrals: Jarad oGnzalez MD [Primary Care Provider] - (Your doctor's office will call you with an appointment within 7 days) Diet: Regular Addtl Attending Provider Instructions: Take Tylenol and ibuprofen as needed for pain. For additional pain medication, you can call our office and we can prescribe narcotics. Continue taking Flomax as this can help with stent discomfort. Oxybutynin as needed, however this can cause dry mouth, constipation and difficulty urinating so only use when necessary. It is normal to have blood in his urine while the stent is in place. The more activity perform, the bloody or your urine will be. This is okay as long as you are able to urinate. You will be called regarding a follow-up appointment to determine stone treatment. Call the office earlier with fevers or uncontrolled pain. Pending Studies at Discharge: No Stand-Alone Forms: My [place], Pain - Opioid Pain Management, Smoking Cessation Medications and DC Order Prescriptions: New tamsulosin [Flomax] 0.4 mg capsule 0.4 mg PO DAILY Qty: 30 0RF oxybutynin chloride [Ditropan XL] 5 mg tablet extended release 24hr 5 mg PO DAILY Qty: 30 0RF Continued oxycodone 5 mg tablet 5 mg PO Q6H PRN (Reason: pain) Qty: 7 0RF albuterol sulfate 90 mcg/actuation HFA aerosol inhaler 2 puff INHALATION Q4 PRN (Reason: wheezing/dyspnea) ondansetron 4 mg Tablet,Disintegrating 4 mg PO Q8H PRN (Reason: NAUSEA W/MIGRAINES) norgestimate-ethinyl estradiol [Pdx-Ib-Cxglyx] 0.18/0.215/0.25 mg-25 mcg tablet 1 tab PO QPM Migraine Medication 1 tab PO UD PRN (Reason: MIGRAINES) No Action sulfamethoxazole-trimethoprim [Bactrim DS] 800-160 mg tablet 1 tab PO .TOLD TO STOP promethazine 25 mg suppository 25 mg OK Q6H PRN (Reason: nausea and vomiting) Qty: 12 0RF Discharge Orders: Discharge Order (Routine); Ordered 07/22/22 Ordered By: Edwin Whitten/Other Patient Handouts: Understanding Kidney Stones, Preventing Kidney Stones Admission Data Admit Date/Time: 07/21/22 19:10 Attending Provider: Edwin Shaffer Admit Provider: Thais Patterson Primary Care Provider: Jarad Gonzalez Other Providers: Rio Patterson ; Jerry Cam ; Thais Patterson Other Interventions: Discharge Summary Assessment (RN) Last Done: 07/22/22 12:36
== END 2022-07-22 14:02 | disposition home or self-care (01) | DRG 661 ==
LOC: ED 13:43 → 3W 19:10 → SUATTDRO 19:10 → 3W 20:19